=== PATIENT | male | born 1955 | race Caucasian/White ===

== ENCOUNTER 2021-10-18 05:48 | Inpatient (IN) | payer MEDICARE ==
[~2021-10-18] VITALS: Ht 177.8 cm; Wt 79.0 kg
[2021-10-18] VITALS (24 sets, daily range): BP systolic 70–134; BP diastolic 42–67
[2021-10-18] MEDS: PANTOPRAZOLE SODIUM IV DRIP 80 MG in IV NORMAL SALINE 100ML 100 ML IV SCH ×2 (06:30→16:40)
[2021-10-18] MEDS ORDERED: PANTOPRAZOLE SODIUM IV DRIP 80 MG in IV NORMAL SALINE 100ML 100 ML IV ONE (06:30)
[2021-10-18 06:44] LABS: BASO % 0 % (0-3); EOS % 0 % (0-3); HEMATOCRIT 18.2 % (39.0-53.0); LYMPH # 0.5 x10^3/uL (1.0-4.8); LYMPH % 2 % (24-48); MEAN CORPUSCULAR HEMOGLOBIN 29 pg (25-35); MEAN CORPUSCULAR HGB CONC 31 g/dL (31-37); MEAN CORPUSCULAR VOLUME 95 fL (79-100); MONO # 1.9 x10^3/uL (0.0-1.1); MONO % 8 % (0-9); NEUT # 20.9 x10^3/uL (1.8-7.7); NEUT % 90 % (31-73); PLATELET COUNT 193 x10^3/uL (140-400); RED BLOOD COUNT 1.91 x10^6/uL (4.30-5.70); RED CELL DISTRIBUTION WIDTH 15.6 % (11.5-14.5); WHITE BLOOD COUNT 23.3 x10^3/uL (4.0-11.0)
[2021-10-18 06:45] LABS: HEMOGLOBIN 5.5 g/dL (13.0-17.5)
[2021-10-18 06:56] LABS: PROTHROMBIN TIME PATIENT 22.3 SEC (11.7-14.0)
[2021-10-18] MEDS ORDERED: [UNRECOGNIZED DRUG - OTHER] IV ONE (07:00)
[2021-10-18] MEDS ORDERED: STERILE WATER IV ONE ×2 (07:00)
[2021-10-18] MEDS ORDERED: [UNRECOGNIZED DRUG - OTHER] IV ONE (07:00)
[2021-10-18] MEDS ORDERED: HUM PROTHROMBIN CPLX IV ONE ×2 (07:00)
[2021-10-18 07:02] LABS: ALBUMIN 1.6 g/dL (3.4-5.0); ALBUMIN/GLOBULIN RATIO 0.5 (1.0-1.7); CREATININE 5.4 mg/dL (0.7-1.3); GFR 10.7; MAGNESIUM 2.8 mg/dL (1.8-2.4); TOTAL BILIRUBIN 0.6 mg/dL (0.2-1.0)
--- NOTE | 2021-10-18 07:10 | PHYS DOC ---
Past Medical History Past Surgical History: Other Additional Past Surgical Histo: Unknown Smoking Status: Unknown if ever smoked Alcohol Use: None Adult General Chief Complaint Chief Complaint: GI PROBLEM HPI HPI The patient is a 66-year-old male who presents from a local LTAC for hypotension and brisk GI bleeding. Reportedly facility staff noticed earlier overnight that the patient had bright red blood coming from his rectum. They took a blood pressure and found it to be low. Patient was then sent to the emergency department for evaluation. Mr. Duran appears to have had little medical history prior to a protracted and devastating hospitalization for Covid pneumonia in August 2020. Patient's hospital course was complicated by severe acute encephalopathy apparently secondary to autoimmune encephalitis, ARDS, bilateral pneumothorax, submassive PE now on apixaban, acute kidney injury eventually requiring hemodialysis. He eventually required tracheostomy and PEG tube placement and was very recently d ischarged to the LTAC from [facility]. At baseline daughter states he is not responsive off sedation. For the moment, she would like for him to be a FULL CODE. Upon initial evaluation here in the emergency department patient is pale, does not respond to sedation and BP is 50s/30s. Dark blood is noted about the patient's rectum. Massive transfusion protocol initiated; multiple units of blood and FFP given as per nursing flowsheet and dose of Kcentra given for its theoretical benefit (we do not have Andexxa on formulary). Protonix bolus given and drip started in the event this is a brisk upper GI bleed, though suspect the source is probably lower. With these interventions, patient's blood pressure has normalized. Dr. Colon of gastroenterology contacted, agrees with resusci tative care thus far and with the CT angiogram of the abdomen and pelvis that is ordered. He will follow closely this morning. Case d/w Dr. Herrera of the hospitalist service who graciously accepts the patient for ICU admission. Review of Systems Review of Systems Unobtainable secondary to unresponsive patient. Current Medications Current Medications Current Medications Medications (Trade) Dose Ordered Sig/Nolan Start Time Stop Time Status Last Admin Dose Admin Info (CONTRAST GIVEN -- Rx MONITORING) 1 each PRN DAILY PRN 10/18/21 07:15 10/20/21 07:14 Iohexol (Omnipaque 350 Mg/ml) 90 ml 1X ONCE 10/18/21 07:15 10/18/21 07:16 DC 10/18/21 08:30 90 ML Pantoprazole Sodium 80 mg/ Sodium Chloride 100 ml @ 10 mls/hr 1X ONCE 10/18/21 06:30 10/18/21 16:29 DC 10/18/21 07:45 10 MLS/HR Prothrombin Complex Concent (Human) 2120 unit/ Sterile Water 80 ml @ 403.361 mls/hr ONCE ONCE 10/18/21 07:00 10/18/21 07:11 DC 10/18/21 07:01 403.361 MLS/HR Prothrombin Complex Concent (Human) 2662 unit/ Sterile Water 100 ml @ 504 mls/hr ONCE ONCE 10/18/21 07:00 10/18/21 07:11 Cancel Allergies Allergies Allergies Coded Allergies Type Severity Reaction Last Updated Verified varicella virus vaccine live Allergy Severe 10/18/21 Yes varicella-zoster immune globulin (h Allergy Severe 10/18/21 Yes Physical Exam Physical Exam Older male who is pale and unresponsive. Right internal jugular central venous catheter, right chest tube, tracheostomy and PEG tube all in place. Head is normocephalic and atraumatic. Neck is supple. Oropharynx is tacky. Mucous membranes are pale. Lungs are clear to auscultation at all stations. There is a normal S1 and S2 without rubs or gallops and capillary refill is appropriate, less than 2 seconds globally. Abdomen is soft and n ondistended. Skin is warm and dry without cyanosis, clubbing or edema. Neurologically, GCS 3 (apparently b/l for patient). There is some residual dark blood about the rectum. On digital rectal exam, no masses or lesions are visualized. Active hemorrhage seems to have stopped on my assessment. Current Patient Data Vital Signs Vital Signs Date Time Temp Pulse Resp B/P (MAP) Pulse Ox O2 Delivery O2 Flow Rate FiO2 10/18/21 07:36 96 69/47 (54) 100 Ventilator 10/18/21 06:05 97.9 40 97.9 Lab Values Laboratory Tests Test 10/18/21 06:15 White Blood Count 23.3 x10^3/uL (4.0-11.0) H Red Blood Count 1.91 x10^6/uL (4.30-5.70) L Hemoglobin 5.5 g/dL (13.0-17.5) *L Hematocrit 18.2 % (39.0-53.0) L Mean Corpuscular Volume 95 fL (79-100) Mean Corpuscular Hemoglobin 29 pg (25-35) Mean Corpuscular Hemoglobin Concent 31 g/dL (31-37) Red Cell Distribution Width 15.6 % (11.5-14.5) H Platelet Count 193 x10^3/uL (140-400) Neutrophils (%) (Auto) 90 % (31-73) H Lymphocytes (%) (Auto) 2 % (24-48) L Monocytes (%) (Auto) 8 % (0-9) Eosinophils (%) (Auto) 0 % (0-3) Basophils (%) (Auto) 0 % (0-3) Neutrophils # (Auto) 20.9 x10^3/uL (1.8-7.7) H Lymphocytes # (Auto) 0.5 x10^3/uL (1.0-4.8) L Monocytes # (Auto) 1.9 x10^3/uL (0.0-1.1) H Eosinophils # (Auto) 0.0 x10^3/uL (0.0-0.7) Basophils # (Auto) 0.0 x10^3/uL (0.0-0.2) Segmented Neutrophils % 90 % (35-66) H Band Neutrophils % 2 % (0-9) Lymphocytes % 5 % (24-48) L Monocytes % 2 % (0-10) Metamyelocytes % 1 % (0-0) H Nucleated Red Blood Cells 1 Platelet Estimate Adequate (ADEQUATE) Prothrombin Time 22.3 SEC (11.7-14.0) H Prothrombin Time INR 2.0 (0.8-1.1) H Activated Partial Thromboplast Time 35 SEC (24-38) Sodium Level 135 mmol/L (136-145) L Potassium Level 6.0 mmol/L (3.5-5.1) H Chloride Level 95 mmol/L (98-107) L Carbon Dioxide Level 25 mmol/L (21-32) Anion Gap 15 (6-14) H Blood Urea Nitrogen 108 mg/dL (8-26) H Creatinine 5.4 mg/dL (0.7-1.3) H Estimated GFR (Cockcroft-Gault) 10.7 BUN/Creatinine Ratio 20 (6-20) Glucose Level 129 mg/dL (70-99) H Calcium Level 9.0 mg/dL (8.5-10.1) Magnesium Level 2.8 mg/dL (1.8-2.4) H Total Bilirubin 0.6 mg/dL (0.2-1.0) Aspartate Amino Transferase (AST) 25 U/L (15-37) Alanine Aminotransferase (ALT) 41 U/L (16-63) Alkaline Phosphatase 79 U/L (46-116) Troponin I High Sensitivity 180 ng/L (4-75) H RQ-Pnz-H-Type Natriuretic Peptide 06207 pg/mL (0-124) H Total Protein 5.0 g/dL (6.4-8.2) L Albumin 1.6 g/dL (3.4-5.0) L Albumin/Globulin Ratio 0.5 (1.0-1.7) L Hepatitis B Surface Antigen Nonreactive (Nonreactive) Laboratory Tests 10/18/21 06:15 Laboratory Tests 10/18/21 06:15 EKG EKG [] Radiology/Procedures Radiology/Procedures Bilateral pulmonary edema, EP interpretation. Course & Med Decision Making Course & Med Decision Making Critical care time 150 minutes, independent of separately-billed procedure time. Dragon Disclaimer Dragon Disclaimer This electronic medical record was generated, in whole or in part, using a voice recognition dictation system. Departure Departure Impression: Primary Impression: Hemorrhagic shock Additional Impression: Acute GI bleeding Disposition: ADMITTED INPATIENT Condition: CRITICAL Referrals: NO PCP (PCP) Problem Qualifiers MARYA PALOMINO MD Oct 18, 2021 07:10
[2021-10-18] MEDS ORDERED: IOHEXOL 350 MG/ML 100 ML VIAL. IV ONE (07:15)
[2021-10-18] MEDS ORDERED: CONTRAST GIVEN. MC PRN (07:15)
--- NOTE | 2021-10-18 07:31 | RAD ---
XR CHEST 1V History: Reason: resp failure / Spl. Instructions: / History: Comparison: CT October 16, 2021 Findings: Stable tracheostomy tube and right IJ central line. Right pigtail pleural catheter, unchanged alignme nt. Diffuse pulmonary consolidations. Small left pleural effusion. No definite pneumothorax although evaluation within the right lung apex is degraded due to overlying structures. Unchanged heart size. Impression: 1. Diffuse pulmonary consolidations, similar compared to prior CT. Electronically signed by: Rhys Sanchez DO (10/18/2021 7:29 AM) [id number]
[2021-10-18] MEDS ORDERED: NOREPINEPHRINE VIAL 8 MG in IV DEXTROSE 5% 250 ML IV ONE (07:45)
[2021-10-18] MEDS ORDERED: CALCIUM GLUCONATE 1,000 MG/10 ML VIAL. IVP ONE ×2 (07:45)
[2021-10-18] MEDS ORDERED: ONDANSETRON PF 4 MG/2 ML VIAL. IVP PRN (08:00)
[2021-10-18] MEDS ORDERED: fentaNYL PF VIAL 100 MCG/2 ML VIAL ONE (08:50)
[2021-10-18] MEDS ORDERED: fentaNYL PF VIAL 100 MCG/2 ML VIAL IVP ONE (09:00)
[2021-10-18] MEDS ORDERED: IV NORMAL SALINE 500ML BAG 500 ML IV PRN (09:00)
[2021-10-18] MEDS ORDERED: ATROPINE 0.5 MG/5 ML DISP.SYRINGE. IV PRN (09:00)
[2021-10-18] MEDS ORDERED: MIDAZOLAM 100mg/100ml NS BAG 100 ML IV PRN (09:00)
[2021-10-18] MEDS ORDERED: DEXMEDETOMIDINE 400 MCG in IV NORMAL SALINE 100ML 96 ML IV PRN (09:00)
[2021-10-18] MEDS ORDERED: PROPOFOL 100 ML IV PRN (09:00)
[2021-10-18] MEDS ORDERED: VECURONIUM BOLUS 10 MG VIAL. IV PRN (09:00)
--- NOTE | 2021-10-18 09:11 | PDOC2 ---
GI CONSULT Date of Service: DATE: 10/18/21 TIME: 08:59 Reason For Consult: GI bleed HPI: HPI: 65 y/o male to ER from [facility] passing large amount of red blood per rectum. History from chart: past hospitalization @ [facility] for COVID w/ complications of bilateral pneumothorax s/p chest tubes (right still in place), HERIBERTO requiring HD, PE on Eliquis, encephalopathy (h/o autoimmune encephalitis), s/p trach and PEG. Per ER note, family reports pt is unresponsive off sedation and requests full code. D/w ICU nursing - massive bleeding, red blood, on levo, s/p transfusions. PMH: PMH: COVID w/ complications as above trach, PEG FH: Family History: No pertinent hx Social History: ALCOHOL: other (previous) ROS: unable to obtain Vitals: Vitals: Vital Signs Date Time Temp Pulse Resp B/P (MAP) Pulse Ox O2 Delivery O2 Flow Rate FiO2 10/18/21 08:20 96 120/62 (81) 100 Ventilator 10/18/21 06:05 97.9 40 97.9 Labs: Labs: Laboratory Tests Test 10/18/21 06:15 White Blood Count 23.3 x10^3/uL (4.0-11.0) Red Blood Count 1.91 x10^6/uL (4.30-5.70) Hemoglobin 5.5 g/dL (13.0-17.5) Hematocrit 18.2 % (39.0-53.0) Mean Corpuscular Volume 95 fL (79-100) Mean Corpuscular Hemoglobin 29 pg (25-35) Mean Corpuscular Hemoglobin Concent 31 g/dL (31-37) Red Cell Distribution Width 15.6 % (11.5-14.5) Platelet Count 193 x10^3/uL (140-400) Neutrophils (%) (Auto) 90 % (31-73) Lymphocytes (%) (Auto) 2 % (24-48) Monocytes (%) (Auto) 8 % (0-9) Eosinophils (%) (Auto) 0 % (0-3) Basophils (%) (Auto) 0 % (0-3) Neutrophils # (Auto) 20.9 x10^3/uL (1.8-7.7) Lymphocytes # (Auto) 0.5 x10^3/uL (1.0-4.8) Monocytes # (Auto) 1.9 x10^3/uL (0.0-1.1) Eosinophils # (Auto) 0.0 x10^3/uL (0.0-0.7) Basophils # (Auto) 0.0 x10^3/uL (0.0-0.2) Prothrombin Time 22.3 SEC (11.7-14.0) Prothromb Time International Ratio 2.0 (0.8-1.1) Activated Partial Thromboplast Time 35 SEC (24-38) Sodium Level 135 mmol/L (136-145) Potassium Level 6.0 mmol/L (3.5-5.1) Chloride Level 95 mmol/L (98-107) Carbon Dioxide Level 25 mmol/L (21-32) Anion Gap 15 (6-14) Blood Urea Nitrogen 108 mg/dL (8-26) Creatinine 5.4 mg/dL (0.7-1.3) Estimated GFR (Cockcroft-Gault) 10.7 BUN/Creatinine Ratio 20 (6-20) Glucose Level 129 mg/dL (70-99) Calcium Level 9.0 mg/dL (8.5-10.1) Magnesium Level 2.8 mg/dL (1.8-2.4) Total Bilirubin 0.6 mg/dL (0.2-1.0) Aspartate Amino Transf (AST/SGOT) 25 U/L (15-37) Alanine Aminotransferase (ALT/SGPT) 41 U/L (16-63) Alkaline Phosphatase 79 U/L (46-116) Troponin I High Sensitivity 180 ng/L (4-75) YI-Hks-W-Type Natriuretic Peptide 07777 pg/mL (0-124) Total Protein 5.0 g/dL (6.4-8.2) Albumin 1.6 g/dL (3.4-5.0) Albumin/Globulin Ratio 0.5 (1.0-1.7) Allergies: Coded Allergies: varicella virus vaccine live (Verified Allergy, Severe, 10/18/21) varicella-zoster immune globulin (h (Verified Allergy, Severe, 10/18/21) Medications: Current Medications Medications (Trade) Dose Ordered Sig/Nolan Route PRN Reason Start Time Stop Time Status Last Admin Dose Admin Pantoprazole Sodium 80 mg/ Sodium Chloride 100 ml @ 10 mls/hr 1X ONCE IV 10/18/21 06:30 10/18/21 16:29 10/18/21 07:45 Prothrombin Complex Concent (Human) 2120 unit/ Sterile Water 80 ml @ 403.361 mls/hr ONCE ONCE IV 10/18/21 07:00 10/18/21 07:11 DC 10/18/21 07:01 Iohexol (Omnipaque 350 Mg/ml) 90 ml 1X ONCE IV 10/18/21 07:15 10/18/21 07:16 DC 10/18/21 08:30 Norepinephrine Bitartrate 8 mg/ Dextrose 258 ml @ 13.971 mls/ hr 1X ONCE IV 10/18/21 07:45 10/19/21 02:13 10/18/21 07:50 Calcium Gluconate (Calcium Gluconate) 1,000 mg 1X ONCE IVP 10/18/21 07:45 10/18/21 07:47 DC 10/18/21 07:55 Calcium Gluconate (Calcium Gluconate) 1,000 mg 1X ONCE IVP 10/18/21 07:45 10/18/21 07:47 DC 10/18/21 07:55 Imaging: Imaging: CXR 10/18/21 Impression: 1. Diffuse pulmonary consolidations, similar compared to prior CT. CTA A/P 10/18/21 Impression: 1. No active extravasation of contrast identified in the gastrointestinal tract. Dense material layering throughout the GI tract from the stomach to the of rectum is favored to represent contrast material or medication given density greater than that of clotted blood. Superimposed blood products are not excluded and the presence of this material limits the utility of the exam. 2. Wall thickening of the duodenal jejunal junction and proximal jejunum may represent enteritis and possible source of bleed. 3. No significant colonic wall thickening or diverticular disease. 4. Subcutaneous emphysema tracking along the anterior abdominal wall. 5. Extensive airspace opacities and small left pleural effusion. 6. Prominent 1 cm lymph node anterior to the stomach of uncertain significance. Possibly reactive due to adjacent percutaneous gastrostomy site. PE: GEN: chronically ill HEENT: trach/vent LUNGS: clear anteriorly HEART: tachycardic ABD: PEG in place - site clean/dry, abd soft/quiet, non-distended EXTREMITY: No edema SKIN: No rashes, no jaundice NEURO/PSYCH: sedated A/P: A/P: Hematochezia Anemia, coagulopathy Leukocytosis, hyperkalemia, CKD/HERIBERTO, elevated troponin and BNP H/o COVID, chronic resp failure s/p trach and PEG H/o pneumothorax, CT in place H/o PE on Eliquis -- Dr. Correa has previously seen @ [facility] - reviewed records, was tolerating G tube feeds earlier this week - will follow-up w/ him. Continue medical therapy - transfusions, IV PPI, etc. for now. KATHRYN CONTEH Oct 18, 2021 09:11
[2021-10-18] MEDS ORDERED: ACETAMINOPHEN 650 MG/20.3 ML SOLUTION. PEG PRN (09:15)
--- NOTE | 2021-10-18 09:21 | RAD ---
CTA ABDOMEN AND PELVIS WITHOUT IV CONTRAST History: Large volume gastrointestinal bleed. Comparison: CT chest 10/16/2021 Technique: CT angiography of the abdomen and pelvis with noncontrast, arterial and portal venous phas es of intravenous contrast. 3-D postprocessed images were provided. Findings: Partially visualized right thoracostomy tube. Extensive airspace consolidations with small left pleur al effusion. Cardiomegaly. Mild periportal edema in the liver. The gallbladder is distended with layering density, possibly slud ge. The pancreas, spleen and adrenal glands are within normal limits. Mild bilateral perinephric adip ose stranding. No hydronephrosis or nephrolithiasis. The bladder and prostate are unremarkable. Dense material lies dependently in the stomach, multiple small bowel loops and within the cecum and a ppendix. This is present on all sequences and measures up to approximately 320 Hounsfield units in th e cecum. This is suspected to represent ingested contrast or medication as densities much greater tiffanie n clotted blood. A percutaneous gastrostomy tube is in the expected position. There is wall thickenin g of the proximal small bowel at the duodenal jejunal junction and proximal jejunum. Distal jejunum a nd ileum demonstrate normal wall thickness. No dilation. Normal appearance of the terminal ileum. Hyp erattenuating material fills the nondilated appendix. The colon is mostly fluid-filled without wall t hickening. No significant diverticular disease. Layering density in the rectum on all phases may repr esent blood products versus continuation of the hyperdense material seen elsewhere in the gastrointes tinal tract. No active extravasation of blood is seen on arterial or portal venous phases. There is no free intraperitoneal air or fluid. Mild diffuse peritoneal fat stranding. Redemonstrated prominent lymph node anterior to the stomach measuring 1 cm diameter. Subcutaneous emphysema tracks a long the anterior rectus fascia. No acute osseous abnormality. Impression: 1. No active extravasation of contrast identified in the gastrointestinal tract. Dense material laye ring throughout the GI tract from the stomach to the of rectum is favored to represent contrast mater ial or medication given density greater than that of clotted blood. Superimposed blood products are n ot excluded and the presence of this material limits the utility of the exam. 2. Wall thickening of the duodenal jejunal junction and proximal jejunum may represent enteritis and possible source of bleed. 3. No significant colonic wall thickening or diverticular disease. 4. Subcutaneous emphysema tracking along the anterior abdominal wall. 5. Extensive airspace opacities and small left pleural effusion. 6. Prominent 1 cm lymph node anterior to the stomach of uncertain significance. Possibly reactive du e to adjacent percutaneous gastrostomy site. ------ Exposure: One or more of the following individualized dose reduction techniques were utilized for thi s examination: 1. Automated exposure control 2. Adjustment of the mA and/or kV according to patient size 3. Use of iterative reconstruction technique. Electronically signed by: Austin De León MD (10/18/2021 9:18 AM) [id number]
--- NOTE | 2021-10-18 09:27 | PDOC ---
Provider Note Date of Service: DATE: 10/18/21 TIME: 09:25 Provider Note H&P dictated #[id number] Critical care time 45 minutes. Condition, treatment, multiple medical problems, critical care, very poor pr ognosis, CPR DNR chest compressions etc. extensively discussed with the patient's daughter Bela and his girlfriend extensively for 30 minutes. Continue present care. Family does not want him to suffer in will not continue aggressive care if the chance of meaningful recovery is extremely low. They will consider chest compressions. They will discuss with each other. 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 Justifications for Admission Other Justification YESIKA MCDERMOTT MD Oct 18, 2021 09:27
--- NOTE | 2021-10-18 09:53 | RAD ---
XR CHEST 1V History: High peak pressure on vent. Comparison: 10/18/2021 Technique: Portable AP chest radiograph. Findings/ Impression: Tubes and lines: Tracheostomy tube projects in the midthoracic trachea. Right internal jugular centra l venous catheter tip projects at the mid SVC. With catheter projecting along the midline of the ches t suspected to be external to patient. Right upper chest pigtail pleural drainage catheter. Partially visualized gastrostomy tube balloon. Lungs and pleura: Diffuse bilateral airspace opacity similar to comparisons. Left pleural effusion. N o pneumothorax. Cardiac silhouette and pulmonary vasculature: Unchanged. Osseous structures and other: No acute findings. Electronically signed by: Austin De León MD (10/18/2021 9:51 AM) [id number]
[2021-10-18 10:00] LABS: BASE EXCESS COOX -8 mmol/L (-3-3); HCO3 COOX 22 mmol/L (21-28); METHEMOGLOBIN 0.6 % (0.0-1.9); OXYHEMOGLOBIN 98.3 %; PO2 COOX 237 mmHg (65-108); SAT O2 COOX 99 % (92-99)
[2021-10-18 10:04] LABS: PCO2 COOX 76 mmHg (35-46)
[2021-10-18] MEDS ORDERED: APIX5TAB PO (10:21)
[2021-10-18] MEDS ORDERED: DAPT350V IV (10:21)
[2021-10-18] MEDS ORDERED: PANT20TA2 PO (10:21)
[2021-10-18] MEDS ORDERED: MERO500V24 IV (10:21)
[2021-10-18] MEDS ORDERED: METH40VI IJ (10:21)
[2021-10-18] MEDS ORDERED: IPRA0.2S5 NEB (10:21)
[2021-10-18] MEDS ORDERED: FERR220S16 PO (10:21)
[2021-10-18] MEDS ORDERED: ASCO500C9 PO (10:21)
[2021-10-18] MEDS ORDERED: MICA100V4 IV (10:21)
[2021-10-18] MEDS ORDERED: INSU100V8 SQ (10:21)
[2021-10-18 11:26] LABS: % BANDS 2 % (0-9); % LYMPHS 5 % (24-48); % METAS 1 % (0-0); % MONOS 2 % (0-10); % SEGS 90 % (35-66); NUCLEATED RBC 1
[2021-10-18 11:27] LABS: PLT ESTIMATE ADEQUATE (ADEQUATE)
[2021-10-18 11:50] LABS: BILIRUBIN,URINE SMALL (NEG); CLARITY,URINE CLOUDY; COLOR,URINE AMBER
[2021-10-18 11:51] LABS: BACTERIA,URINE FEW /HPF (0-FEW); NITRITE,URINE NEGATIVE (NEG); PROTEIN,URINE >=300 mg/dL (NEG-TRACE); UROBILINOGEN,URINE 0.2 mg/dL (0.2 mg/dL)
[2021-10-18 11:52] LABS: AMORPHOUS SEDIMENT,UR PRESENT /HPF
--- NOTE | 2021-10-18 11:55 | CONS ---
DATE OF CONSULTATION: 10/18/2021 PULMONARY CONSULTATION ATTENDING PHYSICIAN: Nahid Durand MD. REASON FOR CONSULTATION: Respiratory failure, shock, ARDS. HISTORY OF PRESENT ILLNESS: The patient is a 66-year-old male who was tested positive for COVID on 08/24. He was admitted to [facility] for acute respiratory failure. The patient has been vaccinated and also had a booster. He has underlying autoimmune encephalopathy and has been treated with mycophenolate as well as prednisone chronically. He was immunosuppressed. He was not a candidate for remdesivir or tocilizumab. The patient was intubated on 09/24. He was treated with steroids, empiric antibiotics and micafungin. The patient was then treated for shock as well. He also was found to have submassive pulmonary embolism related to COVID-19 infection. He was placed on apixaban. The patient had HERIBERTO, requiring hemodialysis. The patient had a tracheostomy placed on 10/11 and a PEG tube placed on 10/10. The patient had persistent encephalopathy. During the course of hospital stay, he developed bilateral pneumothorax, likely contributed by COVID-19. He had removal of left chest tube. He still has a right chest tube. The patient was at [facility] for further ventilatory management and other issues. He was requiring very high pressure control up to 50. The patient had severe ARDS. The patient's peak airway pressures have been high. While at [facility], he developed hemorrhagic shock. He developed acute GI bleed with some rectal bleed. He is now transferred to our facility. He is currently on Levophed. He has received 4 units of packed RBCs. His Xarelto was kept on hold. His latest hemoglobin is 9.6 from 5.5. I have reviewed the patient's chest x-ray. He has extensive bilateral pulmonary infiltrates. There is no pleural effusion. The patient has no pneumothorax. The tracheostomy is in position. His arterial blood gases while the patient was changed to volume control showed a pH of 7.08, pCO2 of 76 and a pO2 of 237 with a bicarbonate of 22. I have been asked to see him for further evaluation. PAST MEDICAL HISTORY: Significant for COVID-19 viral pneumonia. History of autoimmune encephalitis. He has been on immunosuppressive agent with steroids in the past. History of recent respiratory failure, ARDS, bilateral pneumothorax and history of submassive PE related to COVID and HERIBERTO requiring hemodialysis. PAST SURGICAL HISTORY: Tracheostomy and PEG tube. REVIEW OF SYSTEMS: Unable to obtain from the patient. FAMILY HISTORY: Unavailable. SOCIAL HISTORY: Unable to obtain from the patient. ALLERGIES: VARICELLA VIRUS VACCINE. CURRENT MEDICATIONS: Reviewed as listed in the MRAD. He is on propofol and Versed along with Levophed. PHYSICAL EXAMINATION: VITAL SIGNS: Reviewed. Last blood pressure was in the 70s. Afebrile, pulse is 102. Pulse ox is 96%. NECK: Supple. Trach in place. LUNGS: With diminished breath sounds bilaterally. He has right chest tube in place. ABDOMEN: With a PEG tube in place. Nondistended. EXTREMITIES: With trace pitting edema. LABORATORY DATA: Reviewed. Sodium 135, potassium 6.0, BUN 108 and creatinine 5.4. ProBNP is 13,000. Albumin is 1.6. INR 2.0. White cell count 23.3, hemoglobin is 5.5 which is now improved to 9.6, and platelets are 193. IMPRESSION: 1. Acute hypercapnic and hypoxic respiratory failure secondary to severe acute respiratory distress syndrome from COVID-19 viral pneumonia. 2. COVID-19 viral pneumonia. 3. Hemorrhagic shock from gastrointestinal bleed. Status post 4 units of packed RBCs. GI has been consulted. Hemoglobin has improved. 4. Bilateral pneumothorax secondary to COVID-19 viral pneumonia. Status post bilateral chest tubes. The chest tube on the left side has been removed. There is right chest tube in place. There is no pneumothorax on chest x-ray. 5. Extensive bilateral parenchymal lung infiltrates secondary to acute respiratory distress syndrome. 6. Submassive pulmonary embolism. This was likely related to COVID. The patient has been on Xarelto, currently on hold due to gastrointestinal bleed. 7. Autoimmune encephalitis with persistent encephalopathy. The patient has been off sedation and has not been responsive. 8. Leukocytosis. RECOMMENDATIONS: 1. I have discussed with respiratory therapist and made changes at the bedside. He is back on pressure control. I have reduced the FiO2. He has severe hypercapnia. He has a persistent high peak airway pressures secondary to ARDS. We will make necessary changes. The goal would be to get a pH to 7.20. 2. Continue present Levophed. Monitor hemoglobin closely. 3. Follow GI recommendations. 4. Follow Renal recommendations. He may need dialysis again. 5. Continue to hold Xarelto. 6. We will obtain venous Dopplers of lower extremities. If positive for DVT, then he may benefit from IVC filter. At this point, it is high risk to continue Xarelto in the setting of GI bleed. 7. Continue chest tube to suction. 8. Prognosis appears to be extremely grim. We will reach out to the family about re-discussion of advanced directives. 9. Discussed with RN and RT. We will follow along with you. Total critical care time includes 50 minutes with review of the chart, imaging studies and decision making. JOE DR: Aylin TID: [id number] JANICE
--- NOTE | 2021-10-18 11:57 | PDOC2 ---
CONSULT Date of Consult Date of Consult DATE: 10/18/21 TIME: 11:43 Reason for Consult Reason for Consult: HERIBERTO Referring Physician Referring Physician: BALDEMAR Identification/Chief Complaint Chief Complaint BRBPR Source Source: Chart review History of Present Illness Reason for Visit: THIS IS A 65 YR OLD TRANSFERRED HERE FROM [facility] FOR HEMATOCHEZIA AND HEMODYNAMIC INSTABILITY. HX NOTABLE FOR LONG ADMIT AT [facility] FOR COVID 19 PNEUMONIA AND RELATED COMPLICATIONS PRIOR TO ADMIT. NOW HERE IN THE ICU. WAS VACCINATED PER DAUGHTER. HIS COURSE AT [facility] WAS COMPLICATED BY HERIBERTO NEEDING HD, TRACH AND PEG TUBE PLACEMENT. HE IS STILL VENT DEPENDENT. HE HAS ALSO HAD BILATERAL PNEUMOTHORACES AND BILATERAL CHEST TUBES. CURRENTLY STILL HAS A RIGHT CHEST TUBE. CURRENTLY HYPOTENSIVE. HIS HGB WAS 5.5 AND HE HAS BEEN GIVEN PRBC. LABS INDICATED SEVERE RENAL FAILURE WITH HIGH K AND MET ACIDOSIS AND ANURIA. CURRENTLY UNDERGOING EVALUATION BY GI AND PULM Past Medical History Past Medical History AUTOIMMUNE ENCEPHALITIS Cardiovascular: HTN Pulmonary: Previously Intubated, Other (ARDS) Infectious disease: Other (COVID 19 PNUEMONIA) Renal/: Chronic renal failure Endocrine: Diabetes Past Surgical History Past Surgical History TRACH, PEG, BILATERAL CHEST TUBES Family History Family History: Hypertension Social History Social History CURRENTLY FROM No ALCOHOL: none Drugs: None Lives: with Family Current Problem List Problem List Problems Medical Problems: (1) Acute GI bleeding Status: Acute (2) Hemorrhagic shock Status: Acute Current Medications Current Medications Current Medications Prothrombin Complex Concent (Human) 2662 unit/ Sterile Water 100 ml @ 504 mls/hr ONCE ONCE IV ; Start 10/18/21 at 07:00; Stop 10/18/21 at 07:11; Status Cancel Pantoprazole Sodium 80 mg/ Sodium Chloride 100 ml @ 10 mls/hr Q10H IV ; Start 10/18/21 at 06:30 Pantoprazole Sodium 80 mg/ Sodium Chloride 100 ml @ 10 mls/hr 1X ONCE IV Last administered on 10/18/21at 07:45; Start 10/18/21 at 06:30; Stop 10/18/21 at 16:29 Prothrombin Complex Concent (Human) 2120 unit/ Sterile Water 80 ml @ 403.361 mls/hr ONCE ONCE IV Last administered on 10/18/21at 07:01; Start 10/18/21 at 07:00; Stop 10/18/21 at 07:11; Status DC Iohexol (Omnipaque 350 Mg/ml) 90 ml 1X ONCE IV Last administered on 10/18/21at 08:30; Start 10/18/21 at 07:15; Stop 10/18/21 at 07:16; Status DC Info (CONTRAST GIVEN -- Rx MONITORING) 1 each PRN DAILY PRN MC SEE COMMENTS; Start 10/18/21 at 07:15; Stop 10/20/21 at 07:14 Norepinephrine Bitartrate 8 mg/ Dextrose 258 ml @ 13.971 mls/ hr 1X ONCE IV Last administered on 10/18/21at 07:50; Start 10/18/21 at 07:45; Stop 10/19/21 at 02:13 Calcium Gluconate (Calcium Gluconate) 1,000 mg 1X ONCE IVP Last administered on 10/18/21at 07:55; Start 10/18/21 at 07:45; Stop 10/18/21 at 07:47; Status DC Calcium Gluconate (Calcium Gluconate) 1,000 mg 1X ONCE IVP Last administered on 10/18/21at 07:55; Start 10/18/21 at 07:45; Stop 10/18/21 at 07:47; Status DC Ondansetron HCl (Zofran) 4 mg PRN Q8HRS PRN IVP NAUSEA/VOMITING; Start 10/18/21 at 08:00; Stop 10/19/21 at 07:59 Fentanyl Citrate 30 ml @ 0 mls/hr CONT PRN IV SEE PROTOCOL Last administered on 10/18/21at 09:11; Start 10/18/21 at 09:00 Midazolam HCl 100 ml @ 1 mls/hr CONT PRN IV SEE PROTOCOL Last administered on 10/18/21at 09:09; Start 10/18/21 at 09:00 Propofol 100 ml @ 2.16 mls/hr CONT PRN IV PER PROTOCOL; Start 10/18/21 at 09:00 Vecuronium [place] (Norcuron Bolus) 6 mg PRN 1X PRN IV VENT INDUCTION Last administered on 10/18/21at 09:21; Start 10/18/21 at 09:00; Stop 10/18/21 at 09:21; Status DC Dexmedetomidine HCl 400 mcg/ Sodium Chloride 100 ml @ 3.6 mls/hr CONT PRN IV PER PROTOCOL; Start 10/18/21 at 09:00 Sodium Chloride 500 ml @ 500 mls/hr 1X PRN PRN IV SEE COMMENTS; Start 10/18/21 at 09:00 Atropine Sulfate (ATROPINE 0.5mg SYRINGE) 0.5 mg PRN Q5MIN PRN IV SEE COMMENTS; Start 10/18/21 at 09:00 Fentanyl Citrate (Fentanyl 2ml Vial) 50 mcg 1X ONCE IVP Last administered on 10/18/21at 09:21; Start 10/18/21 at 09:00; Stop 10/18/21 at 09:01; Status DC Fentanyl Citrate (Fentanyl 2ml Vial) 100 mcg STK-MED ONCE .ROUTE ; Start 10/18/21 at 08:50; Stop 10/18/21 at 08:50; Status DC Acetaminophen (Tylenol) 650 mg PRN Q6HRS PRN PEG MILD PAIN / TEMP > 100.3'F; Start 10/18/21 at 09:15 Insulin Human Lispro (HumaLOG) 0-8 UNITS Q6HRS SQ ; Start 10/18/21 at 12:00 Active Scripts Active Reported Protonix (Pantoprazole Sodium) 20 Mg Tablet.dr 40 Mg PO DAILY Micafungin (Micafungin Sodium) 100 Mg Vial 100 Mg IV DAILY Solu-Medrol 40 Mg Vial (Methylprednisolone Sod Succ/Pf) 40 Mg/1 Ml Vial 60 Mg IJ Q6HRS Meropenem 500 Mg Vial 500 Mg IV DAILY Ipratropium [place] 0.2 Mg/1 Ml Solution 1 Vial NEB QID Lantus (Insulin Glargine,Hum.rec.anlog) 100 Unit/1 Ml Vial 6 Unit SQ DAILY10 Ferrous Sulfate 220 Mg/5 Ml Solution 300 Mg PO BID Daptomycin 350 Mg Vial 450 Mg IV QODAY Vitamin C (Ascorbic Acid) 500 Mg Capsule 1,000 Mg PO DAILY Eliquis (Apixaban) 5 Mg Tablet 5 Mg PO BID Allergies Allergies: Coded Allergies: varicella virus vaccine live (Verified Allergy, Severe, 10/18/21) varicella-zoster immune globulin (h (Verified Allergy, Severe, 10/18/21) ROS Review of System UNABLE TO OBTAIN Physical Exam Physical Exam RIGHT IJ TRIALYSATE CATHETER General: Cooperative, No acute distress HEENT: Mucous membr. moist/pink, Other (ETT) Lungs: Other (DECREASED AT BASES MORE ON THE LEFT) Heart: Regular rate Abdomen: Normal bowel sounds, Other (PEG TUBE SITE INTACT) Extremities: No clubbing Skin: No breakdown Neuro: Other (SEDATED) MUSCULOSKELETAL: No joint tenderness, No deformity, Other (DIFFUSE ATROPHY) Vitals VITALS Vital Signs Date Time Temp Pulse Resp B/P (MAP) Pulse Ox O2 Delivery O2 Flow Rate FiO2 10/18/21 11:00 93 26 99/60 94 Ventilator 10/18/21 08:30 97.5 97.5 Labs Labs Laboratory Tests Test 10/18/21 06:15 10/18/21 09:55 10/18/21 10:05 White Blood Count 23.3 x10^3/uL (4.0-11.0) Red Blood Count 1.91 x10^6/uL (4.30-5.70) Hemoglobin 5.5 g/dL (13.0-17.5) 9.6 g/dL (13.0-17.5) Hematocrit 18.2 % (39.0-53.0) Mean Corpuscular Volume 95 fL (79-100) Mean Corpuscular Hemoglobin 29 pg (25-35) Mean Corpuscular Hemoglobin Concent 31 g/dL (31-37) Red Cell Distribution Width 15.6 % (11.5-14.5) Platelet Count 193 x10^3/uL (140-400) Neutrophils (%) (Auto) 90 % (31-73) Lymphocytes (%) (Auto) 2 % (24-48) Monocytes (%) (Auto) 8 % (0-9) Eosinophils (%) (Auto) 0 % (0-3) Basophils (%) (Auto) 0 % (0-3) Neutrophils # (Auto) 20.9 x10^3/uL (1.8-7.7) Lymphocytes # (Auto) 0.5 x10^3/uL (1.0-4.8) Monocytes # (Auto) 1.9 x10^3/uL (0.0-1.1) Eosinophils # (Auto) 0.0 x10^3/uL (0.0-0.7) Basophils # (Auto) 0.0 x10^3/uL (0.0-0.2) Segmented Neutrophils % 90 % (35-66) Band Neutrophils % 2 % (0-9) Lymphocytes % 5 % (24-48) Monocytes % 2 % (0-10) Metamyelocytes % 1 % (0-0) Nucleated Red Blood Cells 1 Platelet Estimate Adequate (ADEQUATE) Prothrombin Time 22.3 SEC (11.7-14.0) Prothromb Time International Ratio 2.0 (0.8-1.1) Activated Partial Thromboplast Time 35 SEC (24-38) Sodium Level 135 mmol/L (136-145) Potassium Level 6.0 mmol/L (3.5-5.1) Chloride Level 95 mmol/L (98-107) Carbon Dioxide Level 25 mmol/L (21-32) Anion Gap 15 (6-14) Blood Urea Nitrogen 108 mg/dL (8-26) Creatinine 5.4 mg/dL (0.7-1.3) Estimated GFR (Cockcroft-Gault) 10.7 BUN/Creatinine Ratio 20 (6-20) Glucose Level 129 mg/dL (70-99) Calcium Level 9.0 mg/dL (8.5-10.1) Magnesium Level 2.8 mg/dL (1.8-2.4) Total Bilirubin 0.6 mg/dL (0.2-1.0) Aspartate Amino Transf (AST/SGOT) 25 U/L (15-37) Alanine Aminotransferase (ALT/SGPT) 41 U/L (16-63) Alkaline Phosphatase 79 U/L (46-116) Troponin I High Sensitivity 180 ng/L (4-75) HV-Lmj-Q-Type Natriuretic Peptide 70918 pg/mL (0-124) Total Protein 5.0 g/dL (6.4-8.2) Albumin 1.6 g/dL (3.4-5.0) Albumin/Globulin Ratio 0.5 (1.0-1.7) Hepatitis B Surface Antigen Nonreactive (Nonreactive) O2 Saturation 99 % (92-99) Arterial Blood pH 7.08 (7.35-7.45) Arterial Blood pCO2 at Patient Temp 76 mmHg (35-46) Arterial Blood pO2 at Patient Temp 237 mmHg (65-108) Arterial Blood HCO3 22 mmol/L (21-28) Arterial Blood Base Excess -8 mmol/L (-3-3) Oxyhemoglobin 98.3 % Methemoglobin 0.6 % (0.0-1.9) Carbon Monoxide, Quantitative 0.1 % (0.0-1.9) FiO2 100 Laboratory Tests Test 10/18/21 06:15 10/18/21 09:55 10/18/21 10:05 White Blood Count 23.3 x10^3/uL (4.0-11.0) Red Blood Count 1.91 x10^6/uL (4.30-5.70) Hemoglobin 5.5 g/dL (13.0-17.5) 9.6 g/dL (13.0-17.5) Hematocrit 18.2 % (39.0-53.0) Mean Corpuscular Volume 95 fL (79-100) Mean Corpuscular Hemoglobin 29 pg (25-35) Mean Corpuscular Hemoglobin Concent 31 g/dL (31-37) Red Cell Distribution Width 15.6 % (11.5-14.5) Platelet Count 193 x10^3/uL (140-400) Neutrophils (%) (Auto) 90 % (31-73) Lymphocytes (%) (Auto) 2 % (24-48) Monocytes (%) (Auto) 8 % (0-9) Eosinophils (%) (Auto) 0 % (0-3) Basophils (%) (Auto) 0 % (0-3) Neutrophils # (Auto) 20.9 x10^3/uL (1.8-7.7) Lymphocytes # (Auto) 0.5 x10^3/uL (1.0-4.8) Monocytes # (Auto) 1.9 x10^3/uL (0.0-1.1) Eosinophils # (Auto) 0.0 x10^3/uL (0.0-0.7) Basophils # (Auto) 0.0 x10^3/uL (0.0-0.2) Segmented Neutrophils % 90 % (35-66) Band Neutrophils % 2 % (0-9) Lymphocytes % 5 % (24-48) Monocytes % 2 % (0-10) Metamyelocytes % 1 % (0-0) Nucleated Red Blood Cells 1 Platelet Estimate Adequate (ADEQUATE) Prothrombin Time 22.3 SEC (11.7-14.0) Prothromb Time International Ratio 2.0 (0.8-1.1) Activated Partial Thromboplast Time 35 SEC (24-38) Sodium Level 135 mmol/L (136-145) Potassium Level 6.0 mmol/L (3.5-5.1) Chloride Level 95 mmol/L (98-107) Carbon Dioxide Level 25 mmol/L (21-32) Anion Gap 15 (6-14) Blood Urea Nitrogen 108 mg/dL (8-26) Creatinine 5.4 mg/dL (0.7-1.3) Estimated GFR (Cockcroft-Gault) 10.7 BUN/Creatinine Ratio 20 (6-20) Glucose Level 129 mg/dL (70-99) Calcium Level 9.0 mg/dL (8.5-10.1) Magnesium Level 2.8 mg/dL (1.8-2.4) Total Bilirubin 0.6 mg/dL (0.2-1.0) Aspartate Amino Transf (AST/SGOT) 25 U/L (15-37) Alanine Aminotransferase (ALT/SGPT) 41 U/L (16-63) Alkaline Phosphatase 79 U/L (46-116) Troponin I High Sensitivity 180 ng/L (4-75) CH-Ncq-R-Type Natriuretic Peptide 73120 pg/mL (0-124) Total Protein 5.0 g/dL (6.4-8.2) Albumin 1.6 g/dL (3.4-5.0) Albumin/Globulin Ratio 0.5 (1.0-1.7) Hepatitis B Surface Antigen Nonreactive (Nonreactive) O2 Saturation 99 % (92-99) Arterial Blood pH 7.08 (7.35-7.45) Arterial Blood pCO2 at Patient Temp 76 mmHg (35-46) Arterial Blood pO2 at Patient Temp 237 mmHg (65-108) Arterial Blood HCO3 22 mmol/L (21-28) Arterial Blood Base Excess -8 mmol/L (-3-3) Oxyhemoglobin 98.3 % Methemoglobin 0.6 % (0.0-1.9) Carbon Monoxide, Quantitative 0.1 % (0.0-1.9) FiO2 100 Assessment/Plan Assessment/Plan IMP HERIBERTO-ATN-NO CKD-HAS RIGHT IJ TRIALYSIS CATHETER MET AND RESP ACIDOSIS WITH ACIDEMIA LEFT SIDED PLEURAL EFFUSION S/P BILATERAL CHEST TUBES-RIGHT SIDE MAINTAINED ACUTE RESP FAILURE COVID 19 VIRAL PNEUMONIA S/P TRACH S/P PEG GI BLEED-HEMATOCHEZIA HX OF PE CHRONIC ANTICOAGULATION PLAN PRBC HOLD ANTICOAGULANT START RETACRIT PRESSORS NEEDED GI EVALUATION NUTRITION PER GI HD TODAY UF MINIMAL NEEDS CLEARANCE PULM EVAL AND TX UPDATED FAMILY AT BEDSIDE WILL FOLLOW -- SAMUEL GARRETT MD Oct 18, 2021 11:57
[2021-10-18] MEDS: INSULIN LISPRO 300 UNITS/3 ML VIAL. SQ SCH ×3 (12:00→23:56)
--- NOTE | 2021-10-18 12:35 | HP ---
DATE OF SERVICE: 10/18/2021 ADMIT DATE: 10/18/2021 HISTORY OF PRESENT ILLNESS: This is a 65-year-old male who was initially admitted to [facility] in [place] on 08/24 for COVID-19 pneumonia, was treated for acute respiratory failure. He presented to the hospital too late to benefit from remdesivir or tocilizumab. He has been vaccinated and had a booster shot. He was intubated on 09/24/2021. He was treated with IV steroids, empiric cefepime, vancomycin and micafungin for leukocytosis. He was also treated for shock and was noted to have submassive PE related to COVID infection. He was treated with apixaban. He was also receiving hemodialysis for acute kidney injury. He was also noted to have acute autoimmune encephalitis and was treated with mycophenolate and prednisone and was on chronic Bactrim for PCP prophylaxis. Mycophenolate was on hold while the patient was being treated for COVID-19 pneumonia. He had a tracheostomy placed on 10/11 and PEG tube placed on 10/10. The patient developed bilateral pneumothorax and was treated with chest tubes on both sides. He still has a right-sided chest tube. The patient was then transferred to [facility] on 10/16/2021. The patient was not responsive during the stay at [facility] and the patient was not on sedation. This was discussed with the family who were not aware that he was not on any sedation and still not responsive. Dr. Salvador this morning looked up the [facility] records and the patient was taken off sedation 2 days prior to transfer to [facility]. The patient also was hypothermic with temperature close to 91 degrees. He was placed on warming blanket. Workup was started for sepsis. Consultation was obtained with Dr. Escalante and he was started on IV Zosyn, micafungin, and daptomycin. Early this morning, the patient was noted to have massive GI bleeding and had both rectal bleeding as well as hematemesis. The patient was noted to have hemoglobin last night of 6.5 and then 5.5 this morning. [facility] where he received 4 units of packed red cells, FFP and a dose of Kcentra. His INR was 2. Blood pressures were in 50's. Yesterday at [facility], his pCO2 was 115 and mainly they had difficulty ventilating him. Because of the massive GI bleeding and acute hypotension, the patient was admitted to [facility]. REVIEW OF SYSTEMS: At present time, the patient is not responsive and unable to do any systems review. PHYSICAL EXAMINATION: VITAL SIGNS: Temperature 97.9, pulse 99 per minute, respirations 40 per minute, blood pressure 53/36 mmHg. The patient is now on Levophed and blood pressure is 123/60 mmHg. GENERAL: The patient is on mechanical ventilation. He is not responsive. He was also given propofol. HENT: Patient has a tracheostomy tube. SKIN: Warm and dry. There is no cyanosis. EYES: Closed and unable to examine. LUNGS: Decreased breath sounds bilaterally with occasional coarse breath sounds. He has a right-sided chest tube. CARDIOVASCULAR: S1, S2, regular. ABDOMEN: Soft, nontender, no guarding, no rigidity. Bowel sounds present. Mild distention. PEG tube in place. EXTREMITIES: Trace edema. The patient also has mild anasarca. CENTRAL NERVOUS SYSTEM: Not responsive, unable to do full systems review. LABORATORY FINDINGS: INR 2. Sodium 135, potassium 6, BUN 108, creatinine 5.4, glucose 129, calcium 9, magnesium 2.8. BNP 1388. Troponin 180, albumin 1.6. WBC count 23.3, hemoglobin 5.5. DIAGNOSTIC STUDIES: CT scan of abdomen and pelvis is pending. Chest x-ray shows diffuse pulmonary consolidations. IMPRESSION: 1. Acute gastrointestinal bleeding, etiology not clear. The patient is on apixaban for pulmonary embolism. The patient could have both upper and lower gastrointestinal bleeding. 2. Acute hypoxic and hypercapnic respiratory failure, on mechanical ventilation due to COVID-19 pneumonia. 3. Acute hypotension with shock. 4. Acute blood loss anemia. 5. Acute respiratory distress syndrome. 6. COVID-19 pneumonia, recent. 7. Bilateral pneumothorax, currently being treated for right pneumothorax. 8. Acute kidney injury, on hemodialysis. 9. Acute blood loss anemia. 10. Physical deconditioning. 11. Encephalopathy. 12. Submassive pulmonary embolism. 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 14. Status post tracheostomy, on 10/11. 15. Sepsis with leukocytosis and hypothermia. 16. Status post PEG tube placement on 10/10 for dysphagia. 17. Status post tracheostomy, on 10/11. PLAN: 1. Acute gastrointestinal bleeding. The patient has been started on IV Protonix. Consulted Dr. Colon and Sunny for GI evaluation and management, fluid resuscitation. 2. Acute hypotension with shock. The patient has been given 4 units of blood. Started on Levophed drip. 3. Acute blood loss anemia. Blood transfusion as noted earlier. 4. Coagulopathy, stop apixaban. The patient has been given Kcentra, FFP and 4 units of packed red cells. 5. Right pneumothorax. Continue chest tube. 6. Acute hypoxic and hypercapnic respiratory failure. Consult Dr. Paul for pulmonary evaluation and management. Continue vent management. 7. Sepsis. Consult Dr. Escalante for Infectious Disease evaluation and management. The patient has been started on daptomycin, micafungin and Zosyn on 10/16/2021. 8. Acute kidney injury, on hemodialysis. Consult Dr. Shetty. Continue hemodialysis if he can tolerate it. 9. Hyperglycemia. The patient is on IV steroids, start a low dose sliding scale insulin. May need Lantus. Right now, the patient is n.p.o. 10. Acute encephalopathy. The patient remains unresponsive. For details, please refer to the orders. Continue to monitor. He will need some sedation at this time. 11. History of autoimmune encephalitis. Patient was treated at [facility] in June 2021 with prednisone and mycophenolate. 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 Mycophenolate was discontinued after his admission to the [facility]. Prognosis of this patient is extremely poor. I had spoken to the patient's daughter, Bela yesterday. I will call her today and see whether we need to continue aggressive care or consider making him comfort care. For details, please refer to the orders. YELITZA/GORDON/ANIVAL DR: YELITZA/kadeem TID: [id number] [facility] MEDICAL CENTERFabian
[2021-10-18] MEDS: PIPERACILLIN/TAZOBACTAM 2.25 GM in IV NORMAL SALINE 50ML 50 ML IV SCH ×2 (13:34→21:14)
[2021-10-18] MEDS ORDERED: MICAFUNGIN 100 MG in IV DEXTROSE 5% 100ML 100 ML IV SCH (14:00)
[2021-10-18 14:04] LABS: BASE EXCESS ABG -8 mmol/L (-3-3); HCO3 ABG 20 mmol/L (21-28); PCO2 ABG 50 mmHg (35-46); PO2 ABG 74 mmHg (65-108); SAT O2 ABG 93 % (92-99)
[2021-10-18 14:05] LABS: FIO2 ABG 60
[2021-10-18] MEDS ORDERED: DIALYSIS PATIENT. MC PRN ×2 (14:30)
[2021-10-18] MEDS ORDERED: IV NORMAL SALINE 1000ML BAG 1,000 ML IV PRN ×2 (14:30)
--- NOTE | 2021-10-18 14:31 | RAD ---
Exam: US BILATERAL LOWEREXTREMITY VENOUS DOPPLER Indication: Hypoxia, pe, r/o dvt Technique: Color-flow and pulsed wave duplex ultrasound with compression of venous structures of th e bilateral lower extremities. Comparison: None Available. Findings: Duplex ultrasound with compression of the deep venous structures of the bilateral lower ext remities from the common femoral vein through the popliteal vein is negative for DVT. The posterior t ibial and peroneal veins are segmentally visualized and patent where seen. Normal venous waveforms an d augmentation are noted throughout. Impression: No evidence for DVT in the bilateral lower extremities. Electronically signed by: Darryl Joshi MD (10/18/2021 2:29 PM) [id number]
[2021-10-18] MEDS ORDERED: DAPTOmycin (GENERIC) IVPB 430 MG in IV NORMAL SALINE 50ML 50 ML IV SCH (15:00)
--- NOTE | 2021-10-18 16:08 | NUR ---
SS following for discharge planning. SS reviewed pt chart and discussed with pt RN. Pt is from home and is currently on the vent at 60%. Pt on Levophed. Pt on IV Daptomycin, IV Micafungin, and IV Zosyn. Not ready. SS will continue to follow for discharge planning.
[2021-10-18] MEDS ORDERED: NOREPINEPHRINE VIAL 8 MG in IV DEXTROSE 5% 250 ML IV PRN (18:15)
[2021-10-18 18:18] LABS: HEMATOCRIT 27.5 % (39.0-53.0); HEMOGLOBIN 9.1 g/dL (13.0-17.5)
[2021-10-18] MEDS ORDERED: EPOETIN ALFA-EPBX for ESRD 20,000 UNIT/ML VIAL. SQ SCH (21:00)
[2021-10-19] VITALS (16 sets, daily range): BP systolic 78–123; BP diastolic 50–74
[2021-10-19] MEDS: PANTOPRAZOLE SODIUM IV DRIP 80 MG in IV NORMAL SALINE 100ML 100 ML IV SCH (01:59)
--- NOTE | 2021-10-19 03:20 | CONS ---
DATE OF CONSULTATION: 10/18/2021 REQUESTING PHYSICIAN: Nahid Durand MD REASON FOR CONSULTATION: Sepsis. HISTORY OF PRESENT ILLNESS: This is a 66-year-old gentleman with history of autoimmune encephalitis, who had recovered from that, but was on immunosuppressant. The patient was admitted to [facility] in August with COVID and respiratory failure with ARDS. The patient had pulmonary emboli. The patient was intubated after failing BiPAP and his hospital course was complicated by pneumoperitoneum, bilateral pneumothoraces, acute kidney injury requiring hemodialysis, hypothermia, shock, leukocytosis, hospital-acquired pneumonia. The patient eventually had a trach and PEG and was transferred to [facility] where he was for 2 days and he became hypothermic and then had a GI bleed, hence the patient was transferred to [place]. The patient is currently intubated and sedated on a ventilator in [place] ICU. Significant other girlfriend is at the bedside. PAST MEDICAL HISTORY: Positive for as mentioned COVID pneumonia, autoimmune encephalitis, being on immunosuppressant, PE, acute kidney injury, requiring hemodialysis and pneumothorax and trach and PEG. REVIEW OF SYSTEMS: Unable to do. SOCIAL HISTORY: Unable to obtain. ALLERGIES: APPARENTLY ALLERGIC TO VARICELLA VIRUS VACCINE. CURRENT MEDICATIONS: Daptomycin, Zosyn and micafungin and on chronic Bactrim. PHYSICAL EXAMINATION: GENERAL: Sedated, orally intubated gentleman, not in any distress. VITAL SIGNS: Temperature 97.7, pulse 101, respirations 30, blood pressure 103/58. HEENT: Both pupils are round and reacting. No conjunctival lesion. No oral lesions. NECK: Supple. Tracheostomy in place. LUNGS: Decreased breath sounds. HEART: S1, S2 regular. No gallop or murmur. ABDOMEN: Soft, nontender. PEG tube is in place. EXTREMITIES: No edema or cyanosis. SKIN: Unremarkable. NEUROLOGIC: Unable to muffler tender since the patient is sedated, intubated. LABORATORY DATA: White count is 23,000, hemoglobin was down to 5.5. BUN and creatinine is 108 and 5.4. BNP is 13,388. Urinalysis unremarkable. Chest x-ray reviewed with multiple tubes. CT angio showed some enteritis, subcutaneous emphysema, extensive bilateral infiltrates. IMPRESSION: 1. Gastrointestinal bleed with hemorrhagic shock. 2. Respiratory failure from COVID pneumonia. 3. Hypothermia. 4. Pulmonary embolism. 5. Renal failure. 6. Bilateral pneumothorax. 7. Leukocytosis. RECOMMENDATIONS: Would continue Zosyn, daptomycin and micafungin for the time being, which was started at [facility], I believe either yesterday or day before yesterday and follow the cultures until the patient stabilizes. Thank you very much, Dr. Nahid Durand for giving me opportunity to participate in this patient's care. DWAIN/TATA/SNADRA DR: DWAIN/kadeem TID: [id number]
[2021-10-19 05:42] LABS: BASO % 0 % (0-3); EOS % 0 % (0-3); HEMATOCRIT 22.4 % (39.0-53.0); HEMOGLOBIN 7.6 g/dL (13.0-17.5); LYMPH # 0.8 x10^3/uL (1.0-4.8); LYMPH % 3 % (24-48); MEAN CORPUSCULAR HEMOGLOBIN 30 pg (25-35); MEAN CORPUSCULAR HGB CONC 34 g/dL (31-37); MEAN CORPUSCULAR VOLUME 87 fL (79-100); MONO # 2.4 x10^3/uL (0.0-1.1); MONO % 9 % (0-9); NEUT # 21.8 x10^3/uL (1.8-7.7); NEUT % 87 % (31-73); PLATELET COUNT 169 x10^3/uL (140-400); RED BLOOD COUNT 2.57 x10^6/uL (4.30-5.70)
[2021-10-19] MEDS: INSULIN LISPRO 300 UNITS/3 ML VIAL. SQ SCH ×2 (06:00→11:57)
[2021-10-19] MEDS: PIPERACILLIN/TAZOBACTAM 2.25 GM in IV NORMAL SALINE 50ML 50 ML IV SCH (06:00)
[2021-10-19 06:32] LABS: ALBUMIN 1.6 g/dL (3.4-5.0); ALBUMIN/GLOBULIN RATIO 0.5 (1.0-1.7); CALCIUM 8.2 mg/dL (8.5-10.1); CREATININE 3.9 mg/dL (0.7-1.3); GFR 15.5; MAGNESIUM 2.2 mg/dL (1.8-2.4); POTASSIUM 4.4 mmol/L (3.5-5.1); TOTAL BILIRUBIN 0.6 mg/dL (0.2-1.0); TOTAL PROTEIN 4.6 g/dL (6.4-8.2)
[2021-10-19] MEDS ORDERED: IV NORMAL SALINE 1000ML BAG 1,000 ML IV PRN ×2 (07:30)
[2021-10-19] MEDS ORDERED: DIALYSIS PATIENT. MC PRN (07:30)
[2021-10-19] MEDS ORDERED: ALBUMIN HUMAN 25% 100 ML IV PRN (08:00)
[2021-10-19 08:19] LABS: BASE EXCESS ABG -4 mmol/L (-3-3); HCO3 ABG 19 mmol/L (21-28); PCO2 ABG 28 mmHg (35-46); PO2 ABG 73 mmHg (65-108); SAT O2 ABG 94 % (92-99)
--- NOTE | 2021-10-19 09:30 | NUR ---
At approx. 0900 pt began having profuse lower GI bleeding. BP decreased to SBP 60"s. Pt receiving dialysis at the time and fluids and albumin infused. Levophed qtt increased to .4. Dr. Paul notified and responded. Discussed pts condition and poor prognosis with pts daughter who is the DPOA. Also discussed pts wishes and living will. Daughter requests pt to be made comfort care only and to pursue no other life support measures. Will withdraw life support once other family members are notified.
--- NOTE | 2021-10-19 09:48 | PDOC ---
IM PROGRESS NOTES- Subjective Subjective He is not responsive. Unable to do systems review. Objective Vitals/I&O Vital Signs Date Time Temp Pulse Resp B/P (MAP) Pulse Ox O2 Delivery O2 Flow Rate FiO2 10/19/21 07:25 100 Ventilator 10/19/21 06:00 116 30 105/60 10/19/21 04:00 98.3 98.3 I & O 10/18/21 10/18/21 10/19/21 15:00 23:00 07:00 Intake Total 200 ml 1104.0 ml Output Total 215 ml 1760 ml 0 ml Balance -215 ml -1560 ml 1104.0 ml Physical Exam Physical Exam GENERAL: The patient is on mechanical ventilation. He is not responsive. HENT: Patient has a tracheostomy tube. SKIN: Warm and dry. There is no cyanosis. EYES: Closed and unable to examine. LUNGS: Decreased breath sounds bilaterally with occasional coarse breath sounds. He has a right-sided chest tube. CARDIOVASCULAR: S1, S2, regular. ABDOMEN: Soft, nontender, no guarding, no rigidity. Bowel sounds present. Mild distention. PEG tube in place. EXTREMITIES: Trace edema. The patient also has mild anasarca. CENTRAL NERVOUS SYSTEM: Not responsive, unable to do full systems review. Labs Laboratory Tests Test 10/18/21 09:55 10/18/21 10:05 10/18/21 12:52 10/18/21 13:55 O2 Saturation 99 % (92-99) 93 % (92-99) Arterial Blood pH 7.08 (7.35-7.45) *L 7.22 (7.35-7.45) L Arterial Blood pCO2 at Patient Temp 76 mmHg (35-46) *H 50 mmHg (35-46) H Arterial Blood pO2 at Patient Temp 237 mmHg (65-108) H 74 mmHg (65-108) Arterial Blood HCO3 22 mmol/L (21-28) 20 mmol/L (21-28) L Arterial Blood Base Excess -8 mmol/L (-3-3) L -8 mmol/L (-3-3) L Oxyhemoglobin 98.3 % Methemoglobin 0.6 % (0.0-1.9) Carbon Monoxide, Quantitative 0.1 % (0.0-1.9) FiO2 100 60 Hemoglobin 9.6 g/dL (13.0-17.5) #L Glucose (Fingerstick) 156 mg/dL (70-99) H Test 10/18/21 18:11 10/18/21 23:54 10/19/21 05:17 10/19/21 07:31 Hemoglobin 9.1 g/dL (13.0-17.5) L 7.6 g/dL (13.0-17.5) L Hematocrit 27.5 % (39.0-53.0) L 22.4 % (39.0-53.0) L Mean Corpuscular Hemoglobin Concent 33 g/dL (31-37) 34 g/dL (31-37) Glucose (Fingerstick) 110 mg/dL (70-99) H White Blood Count 25.0 x10^3/uL (4.0-11.0) H Red Blood Count 2.57 x10^6/uL (4.30-5.70) L Mean Corpuscular Volume 87 fL (79-100) # Mean Corpuscular Hemoglobin 30 pg (25-35) Red Cell Distribution Width 15.0 % (11.5-14.5) H Platelet Count 169 x10^3/uL (140-400) Neutrophils (%) (Auto) 87 % (31-73) H Lymphocytes (%) (Auto) 3 % (24-48) L Monocytes (%) (Auto) 9 % (0-9) Eosinophils (%) (Auto) 0 % (0-3) Basophils (%) (Auto) 0 % (0-3) Neutrophils # (Auto) 21.8 x10^3/uL (1.8-7.7) H Lymphocytes # (Auto) 0.8 x10^3/uL (1.0-4.8) L Monocytes # (Auto) 2.4 x10^3/uL (0.0-1.1) H Eosinophils # (Auto) 0.0 x10^3/uL (0.0-0.7) Basophils # (Auto) 0.0 x10^3/uL (0.0-0.2) Sodium Level 138 mmol/L (136-145) Potassium Level 4.4 mmol/L (3.5-5.1) # Chloride Level 99 mmol/L (98-107) Carbon Dioxide Level 24 mmol/L (21-32) Anion Gap 15 (6-14) H Blood Urea Nitrogen 82 mg/dL (8-26) H Creatinine 3.9 mg/dL (0.7-1.3) H Estimated GFR (Cockcroft-Gault) 15.5 BUN/Creatinine Ratio 21 (6-20) H Glucose Level 126 mg/dL (70-99) H Calcium Level 8.2 mg/dL (8.5-10.1) L Phosphorus Level 4.0 mg/dL (2.6-4.7) Magnesium Level 2.2 mg/dL (1.8-2.4) Total Bilirubin 0.6 mg/dL (0.2-1.0) Aspartate Amino Transferase (AST) 37 U/L (15-37) Alanine Aminotransferase (ALT) 38 U/L (16-63) Alkaline Phosphatase 74 U/L (46-116) Total Protein 4.6 g/dL (6.4-8.2) L Albumin 1.6 g/dL (3.4-5.0) L Albumin/Globulin Ratio 0.5 (1.0-1.7) L O2 Saturation 94 % (92-99) Arterial Blood pH 7.45 (7.35-7.45) Arterial Blood pCO2 at Patient Temp 28 mmHg (35-46) L Arterial Blood pO2 at Patient Temp 73 mmHg (65-108) Arterial Blood HCO3 19 mmol/L (21-28) L Arterial Blood Base Excess -4 mmol/L (-3-3) L FiO2 60% vent Laboratory Tests 10/18/21 10:05 10/18/21 18:11 10/19/21 05:17 Laboratory Tests 10/19/21 05:17 Meds Current Medications Medications (Trade) Dose Ordered Sig/Nolan Route PRN Reason Start Time Stop Time Status Last Admin Dose Admin Epoetin Rudy-epbx (RETACRIT for ESRD PTS) 10,000 unit MoWeFr@2100 SQ 10/18/21 21:00 10/18/21 21:13 Daptomycin 430 mg/ Sodium Chloride 50 ml @ 100 mls/hr Q48H IV 10/18/21 15:00 10/18/21 15:00 Piperacillin Sod/ Tazobactam Sod 2.25 gm/Sodium Chloride 50 ml @ 100 mls/hr Q8HRS IV 10/18/21 14:00 10/19/21 06:00 Micafungin Sodium 100 mg/Dextrose 100 ml @ 100 mls/hr Q24H IV 10/18/21 14:00 10/18/21 13:34 Norepinephrine Bitartrate 8 mg/ Dextrose 258 ml @ 13.971 mls/ hr CONT PRN IV PER PROTOCOL 10/18/21 18:15 10/18/21 23:49 Albumin Human 100 ml @ 100 mls/hr 1X PRN IV SEE COMMENTS 10/19/21 08:00 10/19/21 08:40 Assessment Assessment 1. Acute gastrointestinal bleeding, etiology not clear. The patient is on apixaban for pulmonary embolism. The patient could have both upper and lower gastrointestinal bleeding. 2. Acute hypoxic and hypercapnic respiratory failure, on mechanical ventilation due to COVID-19 pneumonia. 3. Acute hypotension with shock. 4. Acute blood loss anemia. 5. Acute respiratory distress syndrome. 6. COVID-19 pneumonia, recent. 7. Bilateral pneumothorax, currently being treated for right pneumothorax. 8. Acute kidney injury, on hemodialysis. 9. Acute blood loss anemia. 10. Physical deconditioning. 11. Encephalopathy. 12. Submassive pulmonary embolism. 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 14. Status post tracheostomy, on 10/11. 15. Sepsis with leukocytosis and hypothermia. 16. Status post PEG tube placement on 10/10 for dysphagia. 17. Status post tracheostomy, on 10/11. PLAN: 1. Acute gastrointestinal bleeding. The patient has been started on IV Protonix. Consulted Dr. Colon and Sunny for GI evaluation and management, fluid resuscitation. Clinically improving. CT scan of abdomen and pelvis 1. No active extravasation of contrast identified in the gastrointestinal tract. Dense material layering throughout the GI tract from the stomach to the of rectum is favored to represent contrast material or medication given density greater than that of clotted blood. Superimposed blood products are not excluded and the presence of this material limits the utility of the exam. 2. Wall thickening of the duodenal jejunal junction and proximal jejunum may represent enteritis and possible source of bleed. 3. No significant colonic wall thickening or diverticular disease. 4. Subcutaneous emphysema tracking along the anterior abdominal wall. 5. Extensive airspace opacities and small left pleural effusion. 6. Prominent 1 cm lymph node anterior to the stomach of uncertain significance. Possibly reactive due to adjacent percutaneous gastrostomy site. 2. Acute hypotension with shock. The patient has been given 4 units of blood. Started on Levophed drip. 3. Acute blood loss anemia. Blood transfusion as noted earlier. Hemoglobin is now stable. 4. Coagulopathy, stop apixaban. The patient has been given Kcentra, FFP and 4 units of packed red cells. 5. Right pneumothorax. Continue chest tube. 6. Acute hypoxic and hypercapnic respiratory failure. Consult Dr. Paul for pulmonary evaluation and management. Continue vent management. 7. Sepsis. Consult Dr. Escalante for Infectious Disease evaluation and management. The patient has been started on daptomycin, micafungin and Zosyn on 10/16/2021. At [facility] - sputum Gram stain was negative. Urine culture is negative. Blood culture shows 1 out of 2 gram-positive cocci. 8. Acute kidney injury, on hemodialysis. Consult Dr. Shetty. Continue hemodialysis if he can tolerate it. Labs reviewed. Renal function is improving. 9. Hyperglycemia. The patient is on IV steroids, start a low dose sliding scale insulin. May need Lantus. Right now, the patient is n.p.o. so far controlled 10. Acute encephalopathy. The patient remains unresponsive. For details, please refer to the orders. Continue to monitor. He will need some sedation at this time. 11. Metabolic and respiratory acidosis. Improving. 12. Elevated BNP likely due to renal failure. Elevated troponin likely due to acute kidney injury but also demand mediated ischemia. 13. History of autoimmune encephalitis and encephalopathy. . Prior to this hospitalization patient was treated for autoimmune encephalitis in June 2021 with prednisone and mycophenolate and he did very well. Mycophenolate was discontinued after admission. 14. Submassive pulmonary embolism. Hold apixaban. Bilateral venous Doppler of lower extremities are negative for DVT. Prognosis of this patient is extremely poor. I had spoken to the patient's daughter, Bela yesterday. Condition, treatment, prognosis, options, DNR extensively discussed with her and patient's girlfriend yesterday. Patient is still requiring max dose of Levophed. There is no improvement in his condition. He has multiorgan failure with severe ARDS and acute kidney injury on hemodialysis. He also is septic. This was discussed with the patient's daughter and the family. Also discussed with Dr. Paul. Chest x-ray reviewed. Family has agreed and decided to make him comfort care. Plan Plan For more details regarding further plans, please refer to the orders. Justifications for Admission Other Justification YESIKA MCDERMOTT MD Oct 19, 2021 09:48
[2021-10-19] MEDS ORDERED: MIDAZOLAM HCL/PF 5 MG/5 ML VIAL. IVP PRN (10:00)
--- NOTE | 2021-10-19 10:05 | PDOC ---
PULMONARY PROGRESS NOTES DATE: 10/19/21 TIME: 09:57 Subjective Patient having ongoing GI bleed. Currently on maximum dose of Levophed. Hemoglobin again trending down. He received 4 units of packed RBCs yesterday. Remains on pressure control of 50. Vitals Vital Signs Date Time Temp Pulse Resp B/P (MAP) Pulse Ox O2 Delivery O2 Flow Rate FiO2 10/19/21 07:25 100 Ventilator 10/19/21 06:00 116 30 105/60 10/19/21 04:00 98.3 98.3 Comments Remains sedated but having paradoxical breathing on the ventilator Lungs: Other (Decreased breath sounds bilaterally) Cardiovascular: S1 Abdomen: Soft Extremities: Other (1+ pitting edema) Skin: Warm Labs Laboratory Tests Test 10/18/21 06:15 10/18/21 08:46 10/18/21 09:55 10/18/21 10:05 White Blood Count 23.3 x10^3/uL (4.0-11.0) Red Blood Count 1.91 x10^6/uL (4.30-5.70) Hemoglobin 5.5 g/dL (13.0-17.5) 9.6 g/dL (13.0-17.5) Hematocrit 18.2 % (39.0-53.0) Mean Corpuscular Volume 95 fL (79-100) Mean Corpuscular Hemoglobin 29 pg (25-35) Mean Corpuscular Hemoglobin Concent 31 g/dL (31-37) Red Cell Distribution Width 15.6 % (11.5-14.5) Platelet Count 193 x10^3/uL (140-400) Neutrophils (%) (Auto) 90 % (31-73) Lymphocytes (%) (Auto) 2 % (24-48) Monocytes (%) (Auto) 8 % (0-9) Eosinophils (%) (Auto) 0 % (0-3) Basophils (%) (Auto) 0 % (0-3) Neutrophils # (Auto) 20.9 x10^3/uL (1.8-7.7) Lymphocytes # (Auto) 0.5 x10^3/uL (1.0-4.8) Monocytes # (Auto) 1.9 x10^3/uL (0.0-1.1) Eosinophils # (Auto) 0.0 x10^3/uL (0.0-0.7) Basophils # (Auto) 0.0 x10^3/uL (0.0-0.2) Segmented Neutrophils % 90 % (35-66) Band Neutrophils % 2 % (0-9) Lymphocytes % 5 % (24-48) Monocytes % 2 % (0-10) Metamyelocytes % 1 % (0-0) Nucleated Red Blood Cells 1 Platelet Estimate Adequate (ADEQUATE) Prothrombin Time 22.3 SEC (11.7-14.0) Prothromb Time International Ratio 2.0 (0.8-1.1) Activated Partial Thromboplast Time 35 SEC (24-38) Sodium Level 135 mmol/L (136-145) Potassium Level 6.0 mmol/L (3.5-5.1) Chloride Level 95 mmol/L (98-107) Carbon Dioxide Level 25 mmol/L (21-32) Anion Gap 15 (6-14) Blood Urea Nitrogen 108 mg/dL (8-26) Creatinine 5.4 mg/dL (0.7-1.3) Estimated GFR (Cockcroft-Gault) 10.7 BUN/Creatinine Ratio 20 (6-20) Glucose Level 129 mg/dL (70-99) Calcium Level 9.0 mg/dL (8.5-10.1) Magnesium Level 2.8 mg/dL (1.8-2.4) Total Bilirubin 0.6 mg/dL (0.2-1.0) Aspartate Amino Transf (AST/SGOT) 25 U/L (15-37) Alanine Aminotransferase (ALT/SGPT) 41 U/L (16-63) Alkaline Phosphatase 79 U/L (46-116) Troponin I High Sensitivity 180 ng/L (4-75) LT-Hzz-C-Type Natriuretic Peptide 40291 pg/mL (0-124) Total Protein 5.0 g/dL (6.4-8.2) Albumin 1.6 g/dL (3.4-5.0) Albumin/Globulin Ratio 0.5 (1.0-1.7) Hepatitis B Surface Antigen Nonreactive (Nonreactive) Hepatitis B Surface Antibody, Quant <3.1 mIU/mL (Immunity>9.9) Urine Collection Type Unknown Urine Color Lynne Urine Clarity Cloudy Urine pH 7.0 (<5.0-8.0) Urine Specific [place] 1.020 (1.000-1.030) Urine Protein >=300 mg/dL (NEG-TRACE) Urine Glucose (UA) Negative mg/dL (NEG) Urine Ketones (Stick) Negative mg/dL (NEG) Urine Blood Small (NEG) Urine Nitrite Negative (NEG) Urine Bilirubin Small (NEG) Urine Urobilinogen Dipstick 0.2 mg/dL (0.2 mg/dL) Urine Leukocyte Esterase Negative (NEG) Urine RBC 3-5 /HPF (0-2) Urine WBC 1-4 /HPF (0-4) Urine Amorphous Sediment Present /HPF Urine Bacteria Few /HPF (0-FEW) O2 Saturation 99 % (92-99) Arterial Blood pH 7.08 (7.35-7.45) Arterial Blood pCO2 at Patient Temp 76 mmHg (35-46) Arterial Blood pO2 at Patient Temp 237 mmHg (65-108) Arterial Blood HCO3 22 mmol/L (21-28) Arterial Blood Base Excess -8 mmol/L (-3-3) Oxyhemoglobin 98.3 % Methemoglobin 0.6 % (0.0-1.9) Carbon Monoxide, Quantitative 0.1 % (0.0-1.9) FiO2 100 Test 10/18/21 12:52 10/18/21 13:55 10/18/21 18:11 10/18/21 23:54 Glucose (Fingerstick) 156 mg/dL (70-99) 110 mg/dL (70-99) O2 Saturation 93 % (92-99) Arterial Blood pH 7.22 (7.35-7.45) Arterial Blood pCO2 at Patient Temp 50 mmHg (35-46) Arterial Blood pO2 at Patient Temp 74 mmHg (65-108) Arterial Blood HCO3 20 mmol/L (21-28) Arterial Blood Base Excess -8 mmol/L (-3-3) FiO2 60 Hemoglobin 9.1 g/dL (13.0-17.5) Hematocrit 27.5 % (39.0-53.0) Mean Corpuscular Hemoglobin Concent 33 g/dL (31-37) Test 10/19/21 05:17 10/19/21 07:31 White Blood Count 25.0 x10^3/uL (4.0-11.0) Red Blood Count 2.57 x10^6/uL (4.30-5.70) Hemoglobin 7.6 g/dL (13.0-17.5) Hematocrit 22.4 % (39.0-53.0) Mean Corpuscular Volume 87 fL (79-100) Mean Corpuscular Hemoglobin 30 pg (25-35) Mean Corpuscular Hemoglobin Concent 34 g/dL (31-37) Red Cell Distribution Width 15.0 % (11.5-14.5) Platelet Count 169 x10^3/uL (140-400) Neutrophils (%) (Auto) 87 % (31-73) Lymphocytes (%) (Auto) 3 % (24-48) Monocytes (%) (Auto) 9 % (0-9) Eosinophils (%) (Auto) 0 % (0-3) Basophils (%) (Auto) 0 % (0-3) Neutrophils # (Auto) 21.8 x10^3/uL (1.8-7.7) Lymphocytes # (Auto) 0.8 x10^3/uL (1.0-4.8) Monocytes # (Auto) 2.4 x10^3/uL (0.0-1.1) Eosinophils # (Auto) 0.0 x10^3/uL (0.0-0.7) Basophils # (Auto) 0.0 x10^3/uL (0.0-0.2) Sodium Level 138 mmol/L (136-145) Potassium Level 4.4 mmol/L (3.5-5.1) Chloride Level 99 mmol/L (98-107) Carbon Dioxide Level 24 mmol/L (21-32) Anion Gap 15 (6-14) Blood Urea Nitrogen 82 mg/dL (8-26) Creatinine 3.9 mg/dL (0.7-1.3) Estimated GFR (Cockcroft-Gault) 15.5 BUN/Creatinine Ratio 21 (6-20) Glucose Level 126 mg/dL (70-99) Calcium Level 8.2 mg/dL (8.5-10.1) Phosphorus Level 4.0 mg/dL (2.6-4.7) Magnesium Level 2.2 mg/dL (1.8-2.4) Total Bilirubin 0.6 mg/dL (0.2-1.0) Aspartate Amino Transf (AST/SGOT) 37 U/L (15-37) Alanine Aminotransferase (ALT/SGPT) 38 U/L (16-63) Alkaline Phosphatase 74 U/L (46-116) Total Protein 4.6 g/dL (6.4-8.2) Albumin 1.6 g/dL (3.4-5.0) Albumin/Globulin Ratio 0.5 (1.0-1.7) O2 Saturation 94 % (92-99) Arterial Blood pH 7.45 (7.35-7.45) Arterial Blood pCO2 at Patient Temp 28 mmHg (35-46) Arterial Blood pO2 at Patient Temp 73 mmHg (65-108) Arterial Blood HCO3 19 mmol/L (21-28) Arterial Blood Base Excess -4 mmol/L (-3-3) FiO2 60% vent Laboratory Tests Test 10/18/21 10:05 10/18/21 12:52 10/18/21 13:55 10/18/21 18:11 Hemoglobin 9.6 g/dL (13.0-17.5) 9.1 g/dL (13.0-17.5) Glucose (Fingerstick) 156 mg/dL (70-99) O2 Saturation 93 % (92-99) Arterial Blood pH 7.22 (7.35-7.45) Arterial Blood pCO2 at Patient Temp 50 mmHg (35-46) Arterial Blood pO2 at Patient Temp 74 mmHg (65-108) Arterial Blood HCO3 20 mmol/L (21-28) Arterial Blood Base Excess -8 mmol/L (-3-3) FiO2 60 Hematocrit 27.5 % (39.0-53.0) Mean Corpuscular Hemoglobin Concent 33 g/dL (31-37) Test 10/18/21 23:54 10/19/21 05:17 10/19/21 07:31 Glucose (Fingerstick) 110 mg/dL (70-99) White Blood Count 25.0 x10^3/uL (4.0-11.0) Red Blood Count 2.57 x10^6/uL (4.30-5.70) Hemoglobin 7.6 g/dL (13.0-17.5) Hematocrit 22.4 % (39.0-53.0) Mean Corpuscular Volume 87 fL (79-100) Mean Corpuscular Hemoglobin 30 pg (25-35) Mean Corpuscular Hemoglobin Concent 34 g/dL (31-37) Red Cell Distribution Width 15.0 % (11.5-14.5) Platelet Count 169 x10^3/uL (140-400) Neutrophils (%) (Auto) 87 % (31-73) Lymphocytes (%) (Auto) 3 % (24-48) Monocytes (%) (Auto) 9 % (0-9) Eosinophils (%) (Auto) 0 % (0-3) Basophils (%) (Auto) 0 % (0-3) Neutrophils # (Auto) 21.8 x10^3/uL (1.8-7.7) Lymphocytes # (Auto) 0.8 x10^3/uL (1.0-4.8) Monocytes # (Auto) 2.4 x10^3/uL (0.0-1.1) Eosinophils # (Auto) 0.0 x10^3/uL (0.0-0.7) Basophils # (Auto) 0.0 x10^3/uL (0.0-0.2) Sodium Level 138 mmol/L (136-145) Potassium Level 4.4 mmol/L (3.5-5.1) Chloride Level 99 mmol/L (98-107) Carbon Dioxide Level 24 mmol/L (21-32) Anion Gap 15 (6-14) Blood Urea Nitrogen 82 mg/dL (8-26) Creatinine 3.9 mg/dL (0.7-1.3) Estimated GFR (Cockcroft-Gault) 15.5 BUN/Creatinine Ratio 21 (6-20) Glucose Level 126 mg/dL (70-99) Calcium Level 8.2 mg/dL (8.5-10.1) Phosphorus Level 4.0 mg/dL (2.6-4.7) Magnesium Level 2.2 mg/dL (1.8-2.4) Total Bilirubin 0.6 mg/dL (0.2-1.0) Aspartate Amino Transf (AST/SGOT) 37 U/L (15-37) Alanine Aminotransferase (ALT/SGPT) 38 U/L (16-63) Alkaline Phosphatase 74 U/L (46-116) Total Protein 4.6 g/dL (6.4-8.2) Albumin 1.6 g/dL (3.4-5.0) Albumin/Globulin Ratio 0.5 (1.0-1.7) O2 Saturation 94 % (92-99) Arterial Blood pH 7.45 (7.35-7.45) Arterial Blood pCO2 at Patient Temp 28 mmHg (35-46) Arterial Blood pO2 at Patient Temp 73 mmHg (65-108) Arterial Blood HCO3 19 mmol/L (21-28) Arterial Blood Base Excess -4 mmol/L (-3-3) FiO2 60% vent Medications Active Scripts Medications Dose Route/Sig Max Daily Dose Days Date Category Protonix (Pantoprazole Sodium) 20 Mg Tablet.dr 40 Mg PO DAILY 10/18/21 Reported Micafungin (Micafungin Sodium) 100 Mg Vial 100 Mg IV DAILY 10/18/21 Reported Solu-Medrol 40 Mg Vial (Methylprednisolone Sod Succ/Pf) 40 Mg/1 Ml Vial 60 Mg IJ Q6HRS 10/18/21 Reported Meropenem 500 Mg Vial 500 Mg IV DAILY 10/18/21 Reported Ipratropium [place] 0.2 Mg/1 Ml Solution 1 Vial NEB QID 10/18/21 Reported Lantus (Insulin Glargine,Hum.rec.anlog) 100 Unit/1 Ml Vial 6 Unit SQ DAILY10 10/18/21 Reported Ferrous Sulfate 220 Mg/5 Ml Solution 300 Mg PO BID 10/18/21 Reported Daptomycin 350 Mg Vial 450 Mg IV QODAY 10/18/21 Reported Vitamin C (Ascorbic Acid) 500 Mg Capsule 1,000 Mg PO DAILY 10/18/21 Reported Eliquis (Apixaban) 5 Mg Tablet 5 Mg PO BID 10/18/21 Reported Impression . 1. Acute hypercapnic and hypoxic respiratory failure secondary to severe acute respiratory distress syndrome from COVID-19 viral pneumonia. Continues to need high pressure control due to high peak airway pressures. No evidence of pne umothorax. 2. COVID-19 viral pneumonia. 3. Hemorrhagic shock from gastrointestinal bleed. Status post 4 units of packed RBCs. CTA abdomen without any source of bleeding. Continues to have ongoing bleeding . Hemoglobin dropping again. 4. Bilateral pneumothorax secondary to COVID-19 viral pneumonia. Status post bilateral chest tubes. The chest tube on the left side has been removed. There is right chest tube in place. There is no pneumothorax on chest x-ray. 5. Extensive bilateral parenchymal lung infiltrates secondary to acute respiratory distress syndrome. 6. Submassive pulmonary embolism. This was likely related to COVID. The patient has been on Xarelto, currently on hold due to gastrointestinal bleed. 7. Autoimmune encephalitis with persistent encephalopathy. The patient has been off sedation and has not been responsive. 8. Leukocytosis. 9. HERIBERTO, currently undergoing hemodialysis. Plan . 1. Patient remains critically ill. I have made changes on the ventilator based on today's ABGs. Remains on high pressure control. 2. Continue present Levophed. Monitor hemoglobin closely. Will need more packed RBCs. 3. Follow GI recommendations. So far no plans of endoscopy 4. Follow Renal recommendations. Currently undergoing hemodialysis. 5. Continue to hold Xarelto. 6. Negative venous Dopplers of lower extremities. 7. Continue chest tube to suction. 8. Prognosis appears to be extremely grim. 9. I had a long discussion with patient's daughter at the bedside. Patient has multiple system organ failure. He is currently in shock. He has ARDS which is severe and requires high amount of pressure-controlled to keep his airway distended. He has acute kidney injury now dialysis dependent. He will never go back to his baseline and has a less than 5% chance of survival. The daughter read his advanced directives to us. Those clearly stated he would not want to continue to live in a vegetative state if his chances of survival are very minimal. We all agreed that we should respect his wishes and we have reached a point where we are prolonging the suffering. Once patient's other family members have visited him, we will proceed with comfort care measures. This was discussed with Dr. Durand as well. Total critical care time includes 40 minutes BERTA FOSTER MD Oct 19, 2021 10:05
[2021-10-19] MEDS: MORPHINE SULFATE 4 MG/ML INJ. IV PRN ×3 (10:07→15:03)
--- NOTE | 2021-10-19 11:43 | PDOC ---
Renal-Progress Notes Subjective Notes Notes NONE History of Present Illness Hx of present illness NOT GETTING BETTER Vitals Vitals Vital Signs Date Time Temp Pulse Resp B/P (MAP) Pulse Ox O2 Delivery O2 Flow Rate FiO2 10/19/21 11:24 100 Ventilator 10/19/21 09:00 102 30 123/74 10/19/21 04:00 98.3 98.3 Weight Weight [ ] I.O. Intake and Output Intake and Output 10/19/21 07:00 Intake Total 1304.0 ml Output Total 1975 ml Balance -671.0 ml Intake IV Total 1304.0 ml Output Urine Total 225 ml Chest Tube Drainage Total 1750 ml Labs Labs Laboratory Tests Test 10/18/21 12:52 10/18/21 13:55 10/18/21 18:11 10/18/21 23:54 Glucose (Fingerstick) 156 mg/dL (70-99) 110 mg/dL (70-99) O2 Saturation 93 % (92-99) Arterial Blood pH 7.22 (7.35-7.45) Arterial Blood pCO2 at Patient Temp 50 mmHg (35-46) Arterial Blood pO2 at Patient Temp 74 mmHg (65-108) Arterial Blood HCO3 20 mmol/L (21-28) Arterial Blood Base Excess -8 mmol/L (-3-3) FiO2 60 Hemoglobin 9.1 g/dL (13.0-17.5) Hematocrit 27.5 % (39.0-53.0) Mean Corpuscular Hemoglobin Concent 33 g/dL (31-37) Test 10/19/21 05:17 10/19/21 07:31 White Blood Count 25.0 x10^3/uL (4.0-11.0) Red Blood Count 2.57 x10^6/uL (4.30-5.70) Hemoglobin 7.6 g/dL (13.0-17.5) Hematocrit 22.4 % (39.0-53.0) Mean Corpuscular Volume 87 fL (79-100) Mean Corpuscular Hemoglobin 30 pg (25-35) Mean Corpuscular Hemoglobin Concent 34 g/dL (31-37) Red Cell Distribution Width 15.0 % (11.5-14.5) Platelet Count 169 x10^3/uL (140-400) Neutrophils (%) (Auto) 87 % (31-73) Lymphocytes (%) (Auto) 3 % (24-48) Monocytes (%) (Auto) 9 % (0-9) Eosinophils (%) (Auto) 0 % (0-3) Basophils (%) (Auto) 0 % (0-3) Neutrophils # (Auto) 21.8 x10^3/uL (1.8-7.7) Lymphocytes # (Auto) 0.8 x10^3/uL (1.0-4.8) Monocytes # (Auto) 2.4 x10^3/uL (0.0-1.1) Eosinophils # (Auto) 0.0 x10^3/uL (0.0-0.7) Basophils # (Auto) 0.0 x10^3/uL (0.0-0.2) Sodium Level 138 mmol/L (136-145) Potassium Level 4.4 mmol/L (3.5-5.1) Chloride Level 99 mmol/L (98-107) Carbon Dioxide Level 24 mmol/L (21-32) Anion Gap 15 (6-14) Blood Urea Nitrogen 82 mg/dL (8-26) Creatinine 3.9 mg/dL (0.7-1.3) Estimated GFR (Cockcroft-Gault) 15.5 BUN/Creatinine Ratio 21 (6-20) Glucose Level 126 mg/dL (70-99) Calcium Level 8.2 mg/dL (8.5-10.1) Phosphorus Level 4.0 mg/dL (2.6-4.7) Magnesium Level 2.2 mg/dL (1.8-2.4) Total Bilirubin 0.6 mg/dL (0.2-1.0) Aspartate Amino Transf (AST/SGOT) 37 U/L (15-37) Alanine Aminotransferase (ALT/SGPT) 38 U/L (16-63) Alkaline Phosphatase 74 U/L (46-116) Total Protein 4.6 g/dL (6.4-8.2) Albumin 1.6 g/dL (3.4-5.0) Albumin/Globulin Ratio 0.5 (1.0-1.7) O2 Saturation 94 % (92-99) Arterial Blood pH 7.45 (7.35-7.45) Arterial Blood pCO2 at Patient Temp 28 mmHg (35-46) Arterial Blood pO2 at Patient Temp 73 mmHg (65-108) Arterial Blood HCO3 19 mmol/L (21-28) Arterial Blood Base Excess -4 mmol/L (-3-3) FiO2 60% vent Review of Systems Constitutional: yes: unresponsive Physical Exam General Appearance: other (COVID 19 PROTOCOL LIMITED) Assessment Assessment IMP HERIBERTO-ATN-NO CKD-HAS RIGHT IJ TRIALYSIS CATHETER MET AND RESP ACIDOSIS WITH ACIDEMIA LEFT SIDED PLEURAL EFFUSION S/P BILATERAL CHEST TUBES-RIGHT SIDE MAINTAINED ACUTE RESP FAILURE COVID 19 VIRAL PNEUMONIA S/P TRACH S/P PEG GI BLEED-HEMATOCHEZIA HX OF PE CHRONIC ANTICOAGULATION PLAN WITHDRAWAL OF CARE AGREE WITH PLAN WILL SIGN OFF SAMUEL GARRETT MD Oct 19, 2021 11:43
--- NOTE | 2021-10-19 13:00 | NUR ---
At approx. 1230 family requested that pt be withdrawn from life support. Pt time of at 1246. Family at bedside. MADINA notified. Dr. Durand notified.
== END 2021-10-19 18:00 | DRG 871 ==
LOC: EDBD 05:48 → ER 05:48 → EDBD 07:36 → 1 WEST ICU 07:36
PROVIDERS: ADMIT Internal Medicine; ATTEND Internal Medicine
PROC: 30233K1 Transfusion of Nonautologous Frozen Plasma into Peripheral Vein, Percutaneous Approach (ICD-10-PCS; 2021-10-18)
PROC: 30233N1 Transfusion of Nonautologous Red Blood Cells into Peripheral Vein, Percutaneous Approach (ICD-10-PCS; 2021-10-18)
PROC: 5A1945Z Respiratory Ventilation, 24-96 Consecutive Hours (ICD-10-PCS; 2021-10-18)
PROC: 5A1D70Z Performance of Urinary Filtration, Intermittent, Less than 6 Hours Per Day (ICD-10-PCS; 2021-10-18)
PROC: 02HV33Z Insertion of Infusion Device into Superior Vena Cava, Percutaneous Approach (ICD-10-PCS; 2021-10-18)
PROC: 5A12012 Performance of Cardiac Output, Single, Manual (ICD-10-PCS; principal; 2021-10-19)
PROC: 5A1D70Z Performance of Urinary Filtration, Intermittent, Less than 6 Hours Per Day (ICD-10-PCS; 2021-10-19)
DX: A41.89 Other specified sepsis (principal); G04.81 Other encephalitis and encephalomyelitis; J12.82 Pneumonia due to coronavirus disease 2019; J96.01 Acute respiratory failure with hypoxia; J96.02 Acute respiratory failure with hypercapnia; N17.0 Acute kidney failure with tubular necrosis; U07.1 COVID-19; D62 Acute posthemorrhagic anemia; D84.9 Immunodeficiency, unspecified; J93.83 Other pneumothorax; K92.0 Hematemesis; Z99.11 Dependence on respirator [ventilator] status; K92.2 Gastrointestinal hemorrhage, unspecified; E11.22 Type 2 diabetes mellitus with diabetic chronic kidney disease; I12.9 Hypertensive chronic kidney disease with stage 1 through stage 4 chronic kidney disease, or unspecified chronic kidney disease; N18.9 Chronic kidney disease, unspecified; R57.8 Other shock; Y95 Nosocomial condition; Z79.01 Long term (current) use of anticoagulants; Z82.49 Family history of ischemic heart disease and other diseases of the circulatory system; Z86.61 Personal history of infections of the central nervous system; Z86.711 Personal history of pulmonary embolism; Z93.0 Tracheostomy status; Z93.1 Gastrostomy status; Z66 Do not resuscitate
CPT/HCPCS: 36415; 36430; 36600; 71045; 74174; 80053; 81001; 82805; 82962; 83735; 83880; 84100; 84484; 85007; 85014; 85018; 85025; 85610; 85730; 86317; 86850; 86900; 86901; 86920; 86927; 87340; 93970; 94002; 94003; 94760; C9113; J0610; J0878; J1815; J2248; J2250; J2270; J2543; J3010; J3490; J7060; J7194; P9016; P9017; P9046; Q9967; G0378